=== PATIENT | female | born 1965 | race Caucasian/White ===

== ENCOUNTER → 2016-11-22 17:05 | Outpatient (CLI) | payer BC ==
[2012-12-20 08:46] VITALS: BMI 41.1
== END | disposition home or self-care (01) ==
LOC: D.MAMMO 11:15
DX: Z12.31 Encounter for screening mammogram for malignant neoplasm of breast (principal)

== ENCOUNTER → 2018-08-21 20:55 | Outpatient (CLI) | payer BC ==
[2012-12-20 08:46] VITALS: BMI 41.1
== END | disposition home or self-care (01) ==
LOC: D.MAMMO 13:15
DX: Z12.31 Encounter for screening mammogram for malignant neoplasm of breast (principal)

== ENCOUNTER 2020-05-06 19:00 | Outpatient (CLI) | payer BC ==
[2012-12-20 08:46] VITALS: BMI 41.1
== END 2020-05-06 23:59 | disposition home or self-care (01) ==
LOC: D.MAMMO 19:00
PROVIDERS: ATTEND Family Medicine
DX: Z12.31 Encounter for screening mammogram for malignant neoplasm of breast (principal)